=== PATIENT | male | born 1955 | race Caucasian/White ===

== ENCOUNTER 2023-10-02 17:45 | Inpatient (IN) | payer OTHER ==
--- NOTE | 2023-10-02 18:50 | ED ---
General Adult HPI - General Chief complaint: Recheck/Abnormal Lab/Rx Stated complaint: Pulmonary Time Seen by Provider: 10/02/23 17:55 Source: patient, EMS, RN notes reviewed Mode of arrival: EMS Limitations: no limitations - History of Present Illness Initial comments: 68-year-old male who was transferred from [facility] after being diagnosed with a pulmonary embolus with some right heart strain. 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 He denies any chest pain. No fevers no sweats no palpitations. He states he just was not feeling better after being seen outpatient. He was presented to the hospital and found to have the PE per CT imaging. He was transferred here for further evaluation he currently denies any new complaints. He did present to the other facility he states that he had a chest cold 2 to 3 weeks prior. This seemed to have resolved. He also had been drinking alcohol he quit drinking the usual 6-8 beers a day recently. He also reportedly had developed some lower extremity edema - Related Data Allergies Allergy/AdvReac Type Severity Reaction Status Date / Time Penicillins Allergy Rash/Hives Verified 10/02/23 18:12 Sulfa (Sulfonamide Allergy Rash/Hives Verified 10/02/23 18:12 Antibiotics) Review of Systems ROS Statement: Those systems with pertinent positive or pertinent negative responses have been documented in the HPI. ROS Other: All systems not noted in ROS Statement are negative. Past Medical History Past Medical History: No Reported History History of Any Multi-Drug Resistant Organisms: None Reported Past Surgical History: Appendectomy Additional Past Surgical History / Comment(s): orthoscopic surgery on left knee Past Alcohol Use History: None Reported Past Drug Use History: None Reported General Exam - General Exam Comments Initial Comments: This is a well-developed well-nourished awake alert oriented x 4 male Limitations: no limitations General appearance: alert, in no apparent distress Head exam: Present: atraumatic, normocephalic, normal inspection Eye exam: Present: normal appearance, PERRL, EOMI. Absent: scleral icterus, conjunctival injection, periorbital swelling ENT exam: Present: normal exam, mucous membranes moist Neck exam: Present: normal inspection, full ROM, other. Absent: tenderness, meningismus, lymphadenopathy Respiratory exam: Present: normal lung sounds bilaterally. Absent: respiratory distress, wheezes, rales, rhonchi, stridor Cardiovascular Exam: Present: regular rate, normal rhythm, normal heart sounds. Absent: systolic murmur, diastolic murmur, rubs, gallop, clicks GI/Abdominal exam: Present: soft, normal bowel sounds. Absent: distended, tenderness, guarding, rebound, rigid Extremities exam: Present: full ROM, normal capillary refill, pedal edema. Absent: tenderness, joint swelling, calf tenderness Back exam: Present: normal inspection Neurological exam: Present: alert, oriented X3, CN II-XII intact Psychiatric exam: Present: normal affect, normal mood Skin exam: Present: warm, dry, intact, normal color. Absent: rash Course Vital Signs 10/02/23 10/02/23 17:48 20:09 Temperature 98.2 F Pulse Rate 109 H 99 Respiratory 17 18 Rate Blood Pressure 128/99 119/81 O2 Sat by Pulse 96 95 Oximetry - Reevaluation(s) Reevaluation #1: 10/02/23 21:39 Did review the material sent from [facility] including a CT which did show evidence of bilateral PEs evidence of heart strain. I did discuss the case with Dr. Garcia as well as Dr. Covarrubias. Medical Decision Making - Medical Decision Making CT imaging did show evidence of bilateral PEs with some right heart strain. EKG from the sending facility showed sinus tachycardia. Patient is on high-dose heparin. I did discuss the case with Dr. Garcia from cardiology who is on-call for EKOS. I did discuss case with Dr. Covarrubias. Was pt. sent in by a medical professional or institution (, PA, MACHINE FARMWORKER, urgent care, hospital, or fci...) When possible be specific @ -No Did you speak to anyone other than the patient for history (EMS, parent, family, police, friend...)? What history was obtained from this source @ -No Did you review nursing and triage notes (agree or disagree)? Why? @ -I reviewed and agree with nursing and triage notes Were old charts reviewed (outside hosp., previous admission, EMS record, old EKG, old radiological studies, urgent care reports/EKG's, fci records)? Report findings @ -[facility] old charts were reviewed Differential Diagnosis (chest pain, altered mental status, abdominal pain women, abdominal pain men, vaginal bleeding, weakness, fever, dyspnea, syncope, headache, dizziness, GI bleed, back pain, seizure, CVA, palpatations, mental health, musculoskeletal)? @ -Apnea, pulmonary embolus EKG interpreted by me (3pts min.). @ -As above EKG done at this facility after arrival showed frequent PACs rate 114 QRS 91 QT/QTc 346/414 incomplete right bundle branch block pattern and specific ST configuration did show an [id number] pattern this was compared to the one done at [facility] earlier today. X-rays interpreted by me (1pt min.). @ -None done CT interpreted by me (1pt min.). @ -CT angio from the sending facility interpreted by me evidence of bilateral PEs with evidence of right heart strain U/S interpreted by me (1pt. min.). @ -None done What testing was considered but not performed or refused? (CT, X-rays, U/S, labs)? Why? @ -None What meds were considered but not given or refused? Why? @ -None Did you discuss the management of the patient with other professionals (professionals i.e. , PA, MACHINE FARMWORKER, lab, RT, psych nurse, director of social services, stretch box tender, teacher, department of natural resources officer, medical case worker)? Give summary @ -No Was smoking cessation discussed for >3mins.? @ -No Was critical care preformed (if so, how long)? @ -No Were there social determinants of health that impacted care today? How? (Homelessness, low income, unemployed, alcoholism, drug addiction, transportation, low edu. Level, literacy, decrease access to med. care, [facility], rehab)? @ -No Was there de-escalation of care discussed even if they declined (Discuss DNR or withdrawal of care, Hospice)? DNR status @ -No What co-morbidities impacted this encounter? (DM, HTN, Smoking, COPD, CAD, Cancer, CVA, ARF, Chemo, Hep., AIDS, mental health diagnosis, sleep apnea, morbid obesity)? @ -Pulmonary embolus Was patient admitted / discharged? Hospital course, mention meds given and route, prescriptions, significant lab abnormalities, going to OR and other pertinent info. @ -[hospital course patient was admitted to this facility Undiagnosed new problem with uncertain prognosis? @ -No Drug Therapy requiring intensive monitoring for toxicity (Heparin, Nitro, Insulin, Cardizem)? @ -No Were any procedures done? @ -No Diagnosis/symptom? @ -Pulmonary embolI, dyspnea, elevated troponin Acute, or Chronic, or Acute on Chronic? @ -Acute Uncomplicated (without systemic symptoms) or Complicated (systemic symptoms)? @ -Complicated Side effects of treatment? @ -No Exacerbation, Progression, or Severe Exacerbation? @ -No Poses a threat to life or bodily function? How? (Chest pain, USA, NV, pneumonia, PE, COPD, DKA, ARF, appy, cholecystitis, CVA, Diverticulitis, Homicidal, Suicidal, threat to staff... and all critical care pts) @ -Potential - Lab Data Lab Results 10/02/23 Range/Units 20:16 Troponin I 0.175 H* (0.000-0.034) ng/mL Disposition Clinical Impression: Acute pulmonary embolus, Dyspnea, Elevated troponin Disposition: ADMITTED IP TO THIS [facility] Condition: Stable Referrals: None,Stated [Primary Care Provider] - 1-2 days Time of Disposition: 20:45 Decision Date: 10/02/23 Decision Time: 20:45
[2023-10-02] MEDS ORDERED: NALOXONE 0.4 MG/ML 1 ML VIAL IV PRN (21:46)
[2023-10-02] MEDS ORDERED: ONDANSETRON 4 MG/2 ML VIAL IVP PRN (21:46)
[2023-10-02] MEDS ORDERED: HEPARIN SODIUM 1,000 UN/ML (10ML VL) IV PRN (21:49)
[2023-10-02] MEDS: HEPARIN SOD,PORK IN 0.45% NACL 25,000 UNIT in 0.45% NACL 1 250ML.BAG IV SCH (23:29)
--- NOTE | 2023-10-03 02:40 | P.HPIM ---
History of Present Illness H&P Date: 10/02/23 Chief Complaint: PE 68-year-old male no significant past medical history Patient coming in as a transfer from [facility] after being diagnosed with bilateral PE with suspected heart strain Patient reports history of shortness of breath for the past week at baseline normally he is very active however over the past 3 weeks he has been having some upper respiratory infection symptoms that has progressed significantly over the past few days with shortness of breath with very mild exertion he started avoiding going upstairs to his room as he could not tolerate climbing the steps. 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 Denies any history of blood clots denies any bleeding patient denies any fevers or chills at this time denies any abdominal pain denies any chest pain. He has noticed some leg swelling but denies any injuries. Patient also admits to heavy drinking he drinks about 6 beers every night otherwise denies any smoking or illicit drugs Patient denies any diagnosis of cancer however he has never performed any age- appropriate cancer screening including but not limited to colonoscopy review of systems Pertinent positives as noted in HPI. All other systems were reviewed and are negative on exam Constitutional: No acute distress, conversant, pleasant Eyes: Anicteric sclerae, moist conjunctiva, Pupils equal round reactive to light ENMT: NC/AT Oropharynx clear, no erythema, or exudates Neck: Supple, no masses, or JVD No carotid bruits No thyromegaly Lungs: Clear to auscultation Clear to percussion Normal respiratory effort, no accessory muscle use Cardiovascular: Heart regular in rate and rhythm, No murmurs, gallops, or rubs +1 bilateral peripheral e leg edema Abdominal: Soft Nontender, no guarding, rebound or rigidity Abdomen moving with respiration Normoactive bowel sounds Extremities: No digital cyanosis No clubbing Pedal pulses intact and symmetrical Radial pulses intact and symmetrical No calf tenderness Psychiatric: Alert and oriented to person, place and time Appropriate affect fair judgement Neuro Muscles Strength 5/5 in all 4 extremities Sensation to light touch grossly present throughout Cranial nerves II-XII grossly intact Past Medical History Past Medical History: No Reported History History of Any Multi-Drug Resistant Organisms: None Reported Past Surgical History: Appendectomy Additional Past Surgical History / Comment(s): orthoscopic surgery on left knee Past Alcohol Use History: None Reported Past Drug Use History: None Reported Medications and Allergies Allergies Allergy/AdvReac Type Severity Reaction Status Date / Time Penicillins Allergy Rash/Hives Verified 10/02/23 18:12 Sulfa (Sulfonamide Allergy Rash/Hives Verified 10/02/23 18:12 Antibiotics) Physical Exam Vitals: Vital Signs Temp Pulse Resp BP Pulse Ox 10/02/23 22:31 103 H 18 113/79 96 10/02/23 20:09 99 18 119/81 95 10/02/23 17:48 98.2 F 109 H 17 128/99 96 Intake and Output 10/02/23 10/02/23 10/02/23 06:59 14:59 22:59 Other: Weight 122.47 kg Results Labs: Abnormal Lab Results - Last 24 Hours (Table) 10/02/23 Range/Units 20:16 Troponin I 0.175 H* (0.000-0.034) ng/mL Assessment and Plan Assessment: 68-year-old male no significant past medical history was transferred to our facility from [facility] after being diagnosed with bilateral PEs with concerns for right heart strain due to elevated troponin I discussed the case with ED doctor and accepted the admission for bilateral pulmonary embolism unprovoked with anticipated length of stay more than 2 midnights Acute bilateral pulmonary embolism unprovoked CT finding was suggestive of possible right heart strain Elevated troponins continue to trend Patient is on heparin drip Cardiology consult to evaluate for EKOS Check echocardiogram Monitor vital signs Monitor hemoglobin Check bilateral leg ultrasound venous Doppler Renal function unremarkable sodium 138 potassium 4.2 BUN 11.5 creatinine 1 Alcohol dependence Heavy daily drinker Benzos per CIWA Monitor for alcohol withdrawal symptoms Thiamine p.o. daily Transaminitis mild possibly secondary to alcohol dependence AST 93 ALT 58 Avoid hepatotoxic meds Full code DVT prophylaxis on heparin drip for PE
[2023-10-03] MEDS ORDERED: LORazepam 1 MG TAB PO PRN (02:41)
[2023-10-03] MEDS ORDERED: LORazepam 0.5 MG TAB PO PRN (02:41)
[2023-10-03] MEDS ORDERED: LORazepam 2 MG/ML INJ IV PRN ×2 (02:41)
[2023-10-03] MEDS: PANTOPRAZOLE 40 MG TABLET PO SCH (06:07)
--- NOTE | 2023-10-03 09:03 | US ---
EXAMINATION TYPE: US venous doppler duplex LE DATE OF EXAM: 10/03/2023 2:41 AM COMPARISON: NONE CLINICAL INDICATION: Male, 68 years old with history of DVT; Patient has PE. Slight swelling at ankle s. No other pain or symptoms. SIDE PERFORMED: Bilateral TECHNIQUE: The lower extremity deep venous system is examined utilizing real time linear array sonog nino with graded compression, doppler sonography and color-flow sonography. VESSELS IMAGED: Common Femoral Vein Deep Femoral Vein Greater Saphenous Vein * Femoral Vein Popliteal Vein Small Saphenous Vein * Proximal Calf Veins (* superficial vessels) Right Leg: Negative for DVT Left Leg: Negative for DVT IMPRESSION: Grayscale, color doppler, spectral doppler imaging performed of the deep veins of the lo wer extremities. There is normal flow, compressibility, vascular waveforms.
--- NOTE | 2023-10-03 10:54 | P.CRDCN ---
History of Present Illness History of present illness: HISTORY OF PRESENT ILLNESS: This is a 68-year-old male with a past medical history significant for alcohol abuse. Patient does not follow with a chiropractic practice manager. We have been asked to see the patient in consultation for pulmonary embolism. Patient examined at the bedside. Patient states he has been having cold symptoms for the past 3 weeks. He states over the past couple days his symptoms have worsened. He states he has been having significant shortness of breath. He states he has been unable to walk up and down his stairs. He states he is unable to walk to his bathroom at home without getting short of breath. He denies any chest pain or pressure. The patient initially presented to [facility] and was found to have bilateral pulmonary embolism with suspected heart strain. Patient was started on IV heparin. Patient denies any history of PE/DVT. He denies any recent travel. He denies any recent surgery. He does report having lower extremity edema over the past couple weeks which is new for him. DIAGNOSTICS: - EKG reveals sinus mechanism with no signs of acute ischemia. - Venous Doppler: Negative for DVT bilaterally - Laboratory data: Troponin 0.075. - Current home cardiac medications include none. REVIEW OF SYSTEMS: At the time of my exam: CONSTITUTIONAL: Denies fever or chills. HEENT: Denies blurred vision, vision changes, or eye pain. Denies hemoptysis CARDIOVASCULAR: Denies chest pain. Denies orthopnea. Denies PND. Denies palpitations RESPIRATORY: Reports shortness of breath. GASTROINTESTINAL: Denies abdominal pain. Denies nausea or vomiting. HEMATOLOGIC: Denies bleeding disorders. GENITOURINARY: Denies any blood in urine. SKIN: Denies pruitis. Denies rash. PHYSICAL EXAM: VITAL SIGNS: Reviewed. GENERAL: Well-developed in no acute distress. HEENT: Head is normocephalic. Pupils are equal, round. Sclerae anicteric. Mucous membranes of the mouth are moist. Neck supple. No JVD or thyromegaly LUNGS: Respirations even and unlabored. Lungs essentially clear to auscultation bilaterally. HEART: Regular rate and rhythm. S1 and S2 heard. Systolic murmur noted. ABDOMEN: Soft. Nondistended. Nontender. EXTREMITIES: Normal range of motion. No clubbing or cyanosis. Peripheral pulses intact. 1+ bilateral lower extremity edema NEUROLOGIC: Awake and alert. Oriented x 3. ASSESSMENT: Shortness of breath Bilateral pulmonary embolism with suspected right heart strain per CT scan Elevated troponin, likely type II PA secondary to oxygen supply demand mismatch History of alcohol abuse PLAN: Obtain 2D echo to assess cardiac structure and function. Assess for right heart strain Continue IV heparin. Will wait to transition to Eliquis until echo has been read due to possible right heart strain. Case management was consulted for Eliquis co-pay. Co-pay is $45 and patient states he can afford co-pay. Trend troponins Obtain CBC and BMP Check lipid panel and hemoglobin's A1c Abstinence from alcohol recommended Further recommendations pending patient course Nurse practitioner note has been reviewed by physician. Signing provider agrees with the documented findings, assessment, and plan of care documented by SENIOR PROJECT COORDINATOR as a scribe. Past Medical History Past Medical History: No Reported History History of Any Multi-Drug Resistant Organisms: None Reported Past Surgical History: Appendectomy Additional Past Surgical History / Comment(s): orthoscopic surgery on left knee Past Alcohol Use History: None Reported Past Drug Use History: None Reported Medications and Allergies Home Medications Medication Instructions Recorded Confirmed Type Apixaban Initiation Dose--VTE See Taper PO BID #72 tab 10/03/23 Rx [Eliquis Initiation Dosing for VTE Treatment] Allergies Allergy/AdvReac Type Severity Reaction Status Date / Time Penicillins Allergy Rash/Hives Verified 10/03/23 08:48 Sulfa (Sulfonamide Allergy Rash/Hives Verified 10/03/23 08:48 Antibiotics) sulfamethoxazole Allergy Rash/Hives Verified 10/03/23 08:48 [From Bactrim] trimethoprim [From Bactrim] Allergy Rash/Hives Verified 10/03/23 08:48 Physical Exam Vitals: Vital Signs Temp Pulse Pulse Resp BP BP Pulse Ox 10/03/23 08:00 98.4 F 95 18 114/69 95 10/03/23 07:26 90 10/03/23 04:00 90 16 124/70 96 10/03/23 01:21 100 18 10/02/23 23:45 98.5 F 105 H 18 128/77 97 10/02/23 22:31 103 H 18 113/79 96 10/02/23 20:09 99 18 119/81 95 10/02/23 17:48 98.2 F 109 H 17 128/99 96 Intake and Output 10/02/23 10/03/23 10/03/23 22:59 06:59 14:59 Other: # Voids 1 Weight 122.47 kg Results Cardiac Enzymes 10/02/23 Range/Units 20:16 Troponin I 0.175 H* (0.000-0.034) ng/mL Coagulation 10/02/23 Range/Units 23:56 APTT 59.6 H (22.0-30.0) sec Current Medications Generic Name Dose Route Start Last Admin Trade Name Freq PRN Reason Stop Dose Admin Heparin Sodium (Porcine) 0 unit 10/02/23 21:49 Heparin Sodium 1,000 Un/Ml (10ml Vl) IV PER PROTOCOL PRN Low PTT Protocol Heparin Sodium/Sodium Chloride 250 mls @ 22.045 mls/hr 10/02/23 22:00 10/03/23 08:13 25,000 unit/ Sodium Chloride IV Not Given .[id number] LANG Protocol 18 UNITS/KG/HR Lorazepam 0.5 mg 10/03/23 02:41 Lorazepam 0.5 Mg Tab PO Q4HR PRN Ciwa 4 To 5 Lorazepam 1 mg 10/03/23 02:41 Lorazepam 1 Mg Tab PO Q4HR PRN Ciwa 6 To 7 Lorazepam 1 mg 10/03/23 02:41 Lorazepam 2 Mg/Ml Inj IV Q1HR PRN CIWA 10 to 15 Lorazepam 1 mg 10/03/23 02:41 Lorazepam 2 Mg/Ml Inj IV Q2HR PRN CIWA 8 or 9 Naloxone HCl 0.2 mg 10/02/23 21:46 Naloxone 0.4 Mg/Ml 1 Ml Vial IV Q2M PRN Opioid Reversal Ondansetron HCl 4 mg 10/02/23 21:46 Ondansetron 4 Mg/2 Ml Vial IVP Q8HR PRN Nausea And Vomiting Pantoprazole Sodium 40 mg 10/03/23 07:30 10/03/23 06:07 Pantoprazole 40 Mg Tablet PO Not Given [id number]-[id number] LANG Thiamine HCl 100 mg 10/04/23 09:00 Thiamine 100 Mg Tab PO DAILY LANG Intake and Output 10/02/23 10/03/23 10/03/23 22:59 06:59 14:59 Other: # Voids 1 Weight 122.47 kg
[2023-10-03 12:37] LABS: Basophils # (A) 0.1 k/uL (0-0.2); Basophils % (A) 1 %; Eosinophils # (A) 0.2 k/uL (0-0.7); Eosinophils % (A) 2 %; HCT 49.3 % (39.0-53.0); HGB 16.2 gm/dL (13.0-17.5); Lymphocytes # (A) 2.8 k/uL (1.0-4.8); Lymphocytes % (A) 28 %; MCH 34.4 pg (25.0-35.0); MCHC 32.9 g/dL (31.0-37.0); MCV 104.6 fL (80.0-100.0); Macrocytosis Slight; Monocytes # (A) 0.6 k/uL (0-1.0); Monocytes % (A) 6 %; Neutrophils # (A) 6.1 k/uL (1.3-7.7); Neutrophils % (A) 61 %; Platelet Count 181 k/uL (150-450); RBC 4.72 m/uL (4.30-5.90); RDW 11.9 % (11.5-15.5)
[2023-10-03 12:52] LABS: African American GFR (CKD) >90 (>60 ml/min/1.73 sqM); Anion Gap 10 mmol/L; Blood Urea Nitrogen 14 mg/dL (9-20); Carbon Dioxide 20 mmol/L (22-30); Chloride 107 mmol/L (98-107); Glucose 106 mg/dL (74-99); Non-African American GFR(CKD) >90 (>60 ml/min/1.73 sqM); Potassium 4.3 mmol/L (3.5-5.1); Sodium 137 mmol/L (137-145)
--- NOTE | 2023-10-03 14:25 | P.PN ---
Subjective Progress Note Date: 10/03/23 Hospital Course: 68-year-old male with no significant past medical history, does not see any ysicians, presenting from outside hospital with a diagnosis of bilateral PE with suspected h right heart strain. Currently hemodynamically stable, on room air. Initial labs here showed troponin elevated up to 0.175. CBC and BMP unremarkable. On heparin drip. Cardiology and pulmonology consulted. Lower extremity venous Dopplers negative for DVT. Echocardiogram pending. Subjective: Patient seen and examined at bedside. No acute events overnight. Denies any respiratory complaints at the moment. Pertinent positives and negatives as discussed above, a complete review of systems was performed and all other systems are negative. Vitals Signs Reviewed. General: Nontoxic, no distress, appears at stated age Derm: Warm, dry Head: Atraumatic, normocephalic, symmetric Eyes: EOMI, no lid lag, anicteric sclera Mouth: No lip lesion, mucus membranes moist Cardiovascular: S1S2 reg, no murmur Lungs: CTA bilateral, no rhonchi, no rales, no accessory muscle use Abdominal: Soft, nontender to palpation, no guarding, no appreciable organomegaly Ext: No gross muscle atrophy, no edema, no contractures Neuro: CN II-XI grossly intact, no focal neuro deficits Psych: Alert, oriented, appropriate affect Data Reviewed Today: Pertinent Labs: WBC 10, hemoglobin 16.2, platelet 181, APTT 43.3, bicarb 20, anion gap 10, creatinine 0.85, troponin peaked at 0.175. Imaging: Lower extremity Dopplers negative for DVTs Assessment and Plan: Active: Acute submassive PE, with right heart strain, unprovoked Elevated troponin, nonischemic - Continue heparin drip, monitor APTT, monitor for any bleeding - Discussed management with pulmonology, pending echocardiogram - Cardiology also following - Patient has not had any screening colonoscopies, will need that outpatient - continue tele Metabolic acidosis, non-anion gap - Likely in the setting of IV fluids, repeat BMP tomorrow Alcohol dependence - Ativan as needed. CIWA scores - Thiamine 100 mg daily DVT ppx: Heparin Code status: Full code Anticipated discharge place: Pending clinical course Anticipated discharge time: Pending clinical course Objective - Vital Signs Vital signs: Vital Signs Temp 98.4 F 10/03/23 08:00 Pulse 95 10/03/23 12:58 Resp 18 10/03/23 08:00 BP 114/69 10/03/23 08:00 Pulse Ox 95 10/03/23 08:00 FiO2 Intake & Output 10/02/23 10/03/23 10/03/23 18:59 06:59 18:59 Weight 122.47 kg 122.47 kg Other: # Voids 1 - Labs CBC & Chem 7: 10/03/23 11:55 10/03/23 11:55 Labs: Abnormal Lab Results - Last 24 Hours (Table) 10/02/23 10/02/23 10/03/23 Range/Units 20:16 23:56 07:54 MCV (80.0-100.0) fL APTT 59.6 H 43.3 H (22.0-30.0) sec Carbon Dioxide (22-30) mmol/L Glucose (74-99) mg/dL Troponin I 0.175 H* (0.000-0.034) ng/mL 10/03/23 10/03/23 10/03/23 Range/Units 11:55 11:55 11:55 MCV 104.6 H (80.0-100.0) fL APTT (22.0-30.0) sec Carbon Dioxide 20 L (22-30) mmol/L Glucose 106 H (74-99) mg/dL Troponin I 0.080 H* (0.000-0.034) ng/mL
[2023-10-03 15:40] LABS: Chol/HDL Ratio 4.21 Ratio; LDL Cholesterol,Calculated 120.8 mg/dL (0.0-131.0); VLDL Calculation 19.46 mg/dL (5.00-40.00)
--- NOTE | 2023-10-03 15:43 | CA ---
Transthoracic Echo Report Name: Kenji Najera Age: 68 Gender: M : 1955 Exam Date: 10/03/2023 08:32 Exam Location: [facility] Ht (in): 68 Wt (lb): 270 Ordering Physician: Alexy Moura MD Attending/Referring Phys: Lead Business Analyst Juan Pablo Yuen RDCS Procedure CPT: Indications: Pulmonary Embolism Cardiac Hx: Technical Quality: Technically difficult study Contrast 1: Definity Total Dose (mL): 3 Contrast 2: Total Dose (mL): MEASUREMENTS (Male / Female) Normal Values 2D ECHO LV Diastolic Diameter PLAX 3.6 cm 4.2 - 5.9 / 3.9 - 5.3 cm LV Systolic Diameter PLAX 2.8 cm IVS Diastolic Thickness 1.2 cm 0.6 - 1.0 / 0.6 - 0.9 cm LVPW Diastolic Thickness 1.2 cm 0.6 - 1.0 / 0.6 - 0.9 cm LV Relative Wall Thickness 0.7 LVOT Diameter 2.5 cm Aortic Root Diameter 3.3 cm LA Systolic Diameter LX 3.0 cm 3.0 - 4.0 / 2.7 - 3.8 cm DOPPLER AV Peak Velocity 239.8 cm/s AV Peak Gradient 23.0 mmHg AV Mean Velocity 183.6 cm/s AV Mean Gradient 15.2 mmHg AV Velocity Time Integral 34.3 cm LVOT Peak Velocity 106.8 cm/s LVOT Peak Gradient 4.6 mmHg LVOT Velocity Time Integral 14.8 cm LVOT Stroke Volume 70.2 cm??? LVOT Stroke Volume Index 30.2 ml/m??? LVOT Cardiac Index 2545.9 cm???/min???m??? AV Area Cont Eq vti 2.0 cm??? AV Area Cont Eq pk 2.1 cm??? Mitral E Point Velocity 55.8 cm/s Mitral A Point Velocity 132.4 cm/s Mitral E to A Ratio 0.4 MV Deceleration Time 73.0 ms PV Peak Velocity 44.1 cm/s PV Peak Gradient 0.8 mmHg FINDINGS Left Ventricle Mildly increased septal wall thickness. Left ventricular ejection fraction is estimated at 55-60%. Normal left ventricular systolic function with no obvious regional wall motion abnormalities. Right Ventricle Normal right ventricular size and function. Right Atrium Normal right atrial size. Left Atrium Normal left atrial size. Mitral Valve No mitral regurgitation. Aortic Valve Moderate aortic stenosis with a peak gradient of 25.23 mmHg and a mean gradient of 15.67 mmHg. LVOT Diam. 2.1 Tricuspid Valve No tricuspid regurgitation. Pulmonic Valve No pulmonic regurgitation. Pericardium No pericardial effusion. Aorta Normal size aortic root and proximal ascending aorta. CONCLUSIONS Technically difficult study Left ventricular EF 55-60% No mitral regurgitation Moderate aortic stenosis Normal right ventricular size and function No pericardial effusion Previewed by: Dr. Sebastian Gallardo DO (Electronically Signed) Final Date: 03 October 2023 15:42
[2023-10-04 08:54] VITALS: RESP 17
[2023-10-04] MEDS: Apixaban Initiation Dose--VTE 5 MG TAB PO SCH (09:57)
[2023-10-04] MEDS: THIAMINE 100 MG TAB PO SCH (09:57)
[2023-10-04 10:59] LABS: Basophils # (A) 0.1 k/uL (0-0.2); Basophils % (A) 1 %; Eosinophils # (A) 0.2 k/uL (0-0.7); Eosinophils % (A) 3 %; HGB 15.9 gm/dL (13.0-17.5); Lymphocytes % (A) 28 %; MCH 34.2 pg (25.0-35.0); MCHC 32.5 g/dL (31.0-37.0); MCV 105.2 fL (80.0-100.0); Macrocytosis Slight; Mean Platelet Volume 8.3; Monocytes # (A) 0.5 k/uL (0-1.0); Monocytes % (A) 7 %; Neutrophils # (A) 4.5 k/uL (1.3-7.7); Neutrophils % (A) 61 %; Platelet Count 178 k/uL (150-450); RBC 4.65 m/uL (4.30-5.90); RDW 11.8 % (11.5-15.5); WBC 7.4 k/uL (3.8-10.6)
--- NOTE | 2023-10-04 11:40 | P.PN ---
Subjective HISTORY OF PRESENT ILLNESS: This is a 68-year-old male with a past medical history significant for alcohol abuse. Patient does not follow with a busperson. We have been asked to see the patient in consultation for pulmonary embolism. Patient examined at the bedside. Patient states he has been having cold symptoms for the past 3 weeks. He states over the past couple days his symptoms have worsened. He states he has been having significant shortness of breath. He states he has been unable to walk up and down his stairs. He states he is unable to walk to his bathroom at home without getting short of breath. He denies any chest pain or pressure. The patient initially presented to [facility] and was found to have bilateral pulmonary embolism with suspected heart strain. Patient was started on IV heparin. Patient denies any history of PE/DVT. He denies any recent travel. He denies any recent surgery. He does report having lower extremity edema over the past couple weeks which is new for him. DIAGNOSTICS: - EKG reveals sinus mechanism with no signs of acute ischemia. - Venous Doppler: Negative for DVT bilaterally - Laboratory data: Troponin 0.075. - Current home cardiac medications include none. 10/04/2023 Patient examined this morning at the bedside. He is sitting up in the chair. Patient denies chest pain or pressure. He denies shortness of breath. Vital signs are stable. He remains on IV heparin. Echocardiogram completed revealing ejection fraction 55 to 60%, no obvious regional wall motion abnormalities, normal right ventricular size and function, normal right atrial size, normal left atrial size, moderate aortic stenosis. PHYSICAL EXAM: VITAL SIGNS: Reviewed. GENERAL: Well-developed in no acute distress. HEENT: Head is normocephalic. Pupils are equal, round. Sclerae anicteric. Mucous membranes of the mouth are moist. Neck supple. No JVD or thyromegaly LUNGS: Respirations even and unlabored. Lungs essentially clear to auscultation bilaterally. HEART: Regular rate and rhythm. S1 and S2 heard. Systolic murmur noted. ABDOMEN: Soft. Nondistended. Nontender. EXTREMITIES: Normal range of motion. No clubbing or cyanosis. Peripheral pulses intact. 1+ bilateral lower extremity edema NEUROLOGIC: Awake and alert. Oriented x 3. ASSESSMENT: Shortness of breath Bilateral pulmonary embolism with suspected right heart strain per CT scan, no heart strain per echocardiogram Elevated troponin, likely type II FL secondary to oxygen supply demand mismatch History of alcohol abuse Moderate aortic stenosis PLAN: Discontinue IV heparin. Begin Eliquis 10 mg twice a day for 1 week then decrease to 5 mg twice a day Case management was consulted for Eliquis co-pay. Co-pay is $45 and patient states he can afford co-pay. Patient is stable for discharge home today from a cardiac standpoint Abstinence from alcohol recommended Patient is to follow-up postdischarge with Dr. Bhat in [place] We will plan for outpatient stress testing once patient's acute issues have resolved Nurse practitioner note has been reviewed by physician. Signing provider agrees with the documented findings, assessment, and plan of care documented by COMPUTER BOOKKEEPER as a scribe. Objective - Vital Signs Vital signs: Vital Signs Temp 98.6 F 10/04/23 08:00 Pulse 94 10/04/23 08:00 Resp 17 10/04/23 08:00 BP 123/82 10/04/23 08:00 Pulse Ox 95 10/04/23 08:00 FiO2 Intake & Output 10/03/23 10/04/23 10/04/23 18:59 06:59 18:59 Intake Total 250.25 239.092 Balance 250.25 239.092 Intake: Intake, IV Titration 250.25 239.092 Amount Heparin Sod,Pork in 0.45% 250.25 239.092 NaCl 25,000 unit In 0.45 % NaCl 1 250ml.bag @ 18 UNITS/KG/HR 22.045 mls/hr IV .[id number] [facility] Rx#: [id number] - Labs CBC & Chem 7: 10/04/23 10:16 10/03/23 11:55 Labs: Abnormal Lab Results - Last 24 Hours (Table) 10/03/23 10/03/23 10/03/23 Range/Units 11:55 11:55 11:55 MCV 104.6 H (80.0-100.0) fL APTT (22.0-30.0) sec Carbon Dioxide 20 L (22-30) mmol/L Glucose 106 H (74-99) mg/dL Troponin I 0.080 H* (0.000-0.034) ng/mL 10/03/23 10/03/23 10/04/23 Range/Units 16:30 16:30 01:01 MCV (80.0-100.0) fL APTT 35.3 H 52.1 H (22.0-30.0) sec Carbon Dioxide (22-30) mmol/L Glucose (74-99) mg/dL Troponin I 0.064 H* (0.000-0.034) ng/mL 10/04/23 Range/Units 10:16 MCV 105.2 H (80.0-100.0) fL APTT (22.0-30.0) sec Carbon Dioxide (22-30) mmol/L Glucose (74-99) mg/dL Troponin I (0.000-0.034) ng/mL
[2023-10-04 11:58] LABS: African American GFR (CKD) >90 (>60 ml/min/1.73 sqM); Anion Gap 10 mmol/L; Blood Urea Nitrogen 13 mg/dL (9-20); Calcium 8.7 mg/dL (8.4-10.2); Carbon Dioxide 18 mmol/L (22-30); Chloride 109 mmol/L (98-107); Glucose 239 mg/dL (74-99); Non-African American GFR(CKD) 90 (>60 ml/min/1.73 sqM); Potassium 3.8 mmol/L (3.5-5.1); Sodium 137 mmol/L (137-145)
[2023-10-04 12:10] VITALS: BP 111/78; PULSE 88; TEMP 97.7
--- NOTE | 2023-10-04 13:50 | P.DS ---
Providers Date of admission: 10/02/23 21:46 Expected date of discharge: 10/04/23 Attending physician: Toyin Orozco MD Consults: 10/02/23 21:46 Consult Physician Urgent Consulting Provider: Sukh Garcia Consult Reason/Comments: Pulmonary embolus with right heart strain Do you want consulting provider notified?: Already Contacted Primary care physician: Stated None Hospital Course: Discharge Diagnosis: Submassive Pulmonary Embolism Type II NSTEMI, due to strain of pulmonary embolism Alcohol dependency Moderate Aortic Stenosis Metabolic acidosis, non-anion gap Hospital Course: Patient is a 68-year-old male with no past medical history who does not chronically file with a doctor who was transferred here from [facility] after being diagnosed with bilateral pulmonary embolism with possible acute heart strain, he was started on a heparin drip and transferred to our facility. On arrival here he was found to have positive troponins. Cardiology was consulted. Lower extremity venous Doppler showed no evidence of DVT bilaterally. Echocardiogram showed a preserved ejection fraction at 55 to 60% with no signs of wall region abnormalities but moderate aortic stenosis. He was transition from heparin drip to Eliquis. He had felt improved. This PE was determined to be unprovoked and therefore he was referred to hematology oncology in the outpatient setting for further monitoring. He did establish with a primary care provider out in [place]. Follow-up: Dr. Taylor in 1 week, Dr. Bhat in 1 week, primary care foreground [place]. Eliquis 10 mg twice daily for 7 days and then 5 mg twice daily thereafter. Patient is aware that he needs to follow-up for age-appropriate cancer screenings with her primary care provider as well as a toe former for possible genetic testing. Patient seen and examined at bedside. Breathing is much better. No chest pain, no nausea or vomiting. He denies any blood in his stool no blood in his urine. We had a eileen discussion about avoiding activities that could cause head injury and monitoring for bruising and bleeding patient is in agreement. Vital signs reviewed and stable. General: Nontoxic, no distress, appears at stated age Cardiovascular: S1S2 reg, no murmur, positive posterior tibial pulse bilateral, Lungs: CTA bilateral, no rhonchi, no rales, no accessory muscle use Ext: No gross muscle atrophy, 2+ non-pitting edema b/l lower extremities, no contractures Neuro: CN II-XI grossly intact, no focal neuro deficits Psych: Alert, oriented, appropriate affect A total of 52 minutes of time were spent preparing this complex discharge summary. Patient was discharged on 10/04/23. This dictation was prepared using [employer] voice recognition software. Though every attempt is made to correct errors during dictation some may still exist. Patient Condition at Discharge: Stable Plan - Discharge Summary Discharge Rx Participant: Yes New Discharge Prescriptions: New Apixaban [Eliquis] 5 mg PO BID #74 tab Discharge Medication List Apixaban [Eliquis] 5 mg PO BID #74 tab 10/04/23 [Rx] Follow up Appointment(s)/Referral(s): Eleni Taylor MD [STAFF PHYSICIAN] - 1 Week None,Stated [Primary Care Provider] - 1-2 days Freddie Bhat MD [STAFF PHYSICIAN] - 1 Week (in [place]) Patient Instructions/Handouts: Pulmonary Embolism (DC) Activity/Diet/Wound Care/Special Instructions: Activity: As tolerated, you may feel more winded for the next few weeks Diet: Regular Special Instructions: Limit alcohol intake Please follow with Dr. Taylor to see if you warrant genetic testing for your blood clot Follow with your primary care provider for age appropriate cancer screenings. Avoid activities where you could injure your head Monitor yourself for any bruising or bleeding. Discharge Disposition: HOME SELF-CARE
== END 2023-10-04 12:44 | disposition home or self-care (01) | DRG 175 ==
LOC: EC 17:45 → 3SCARD 21:46
PROVIDERS: ADMIT Internal Medicine; ATTEND Internal Medicine
DX: I26.99 Other pulmonary embolism without acute cor pulmonale (principal); I21.A1 Myocardial infarction type 2; E87.20 Acidosis, unspecified; F10.20 Alcohol dependence, uncomplicated; I35.0 Nonrheumatic aortic (valve) stenosis; Z88.2 Allergy status to sulfonamides; Z88.0 Allergy status to penicillin
CPT/HCPCS: 36415; 80048; 80061; 83036; 84484; 85025; 85730; 93005; 93306; 93970; 99285